=== PATIENT | female | born 1950 | race Caucasian/White ===

== ENCOUNTER → 2017-07-26 | Outpatient (CLI) | payer MEDICARE, MEDICAID ==
[~2017-07-26] MED LIST: ATIVAN GENERIC0.5 MG PO; BACTRIM DS 8001 TAB PO; BENADRYL 25MG C25 MG PO; DIGOXIN0.25 MG PO; ESTER C1 TAB PO; FERROUS SULFAT325 M2 PO; HYDROCHLOROTHIA25 M1 PO; KEFLEX 500MG.500 MG PO; METOPROLOL25 MG PO; MILK OF MA400 MG/53 PO; MIRALAX17 GM/DOSE PO; PANTOPRAZOLE40 M1 PO; PROMETHAZINE25 M1 PO; RANITIDINE75 MG PO; ROBITUSSIN DM S10 ML NG; SEROQUEL 25MG T25 MG PO; SEROQUEL50 MG PO; VENLAFAXINE HYD50 MG PO; VICODIN 5/500 T1 TAB PO; ZOFRAN4 MG PO; ZYRTEC5 MG PO
[2017-07-26 11:22] LABS: HEMOGLOBIN 13.1 g/dL (12.2-16.2); LYMPH % 23.5 % (10-50.0)
[2017-07-26 11:35] LABS: BUN 19 mg/dL (7-18)
[2017-07-26 11:44] LABS: GFR (ESTIMATED) 71 ML/MIN (59-)
== END ==
LOC: LAB 10:53
PROVIDERS: Nurse Practitioner Family
DX: L29.9 Pruritus, unspecified (principal); R74.8 Abnormal levels of other serum enzymes

== ENCOUNTER → 2017-09-03 | Outpatient (CLI) | payer MEDICARE, MEDICAID ==
[2017-09-03 15:22] LABS: BUN 18 mg/dL (7-18)
[2017-09-03 15:51] LABS: GFR (ESTIMATED) 83 ML/MIN (59-)
== END ==
LOC: LAB 12:06
PROVIDERS: Internal Medicine Adolescent Medicine
DX: R76.8 Other specified abnormal immunological findings in serum (principal)